=== PATIENT | female | born 1965 | race Caucasian/White ===

== ENCOUNTER → 2017-09-29 | Outpatient (CLI) | payer MEDICARE, BC ==
[~2017-09-29] MED LIST: HYDR-3720 PO; HYDR1TAB86 PO; LORA1TAB PO; LVT.05T PO; MELO-195 PO; PNT40TEC PO
--- NOTE | 2017-10-02 10:47 | Diagnostic Imaging Report ---
EXAMINATION: Bilateral screening mammogram 2D views with tomosynthesis. The current study was also evaluated with a Computer Aided Detection (CAD) system. INDICATION: Screening. PERSONAL HISTORY: No current complaints stated on the questionnaire. COMPARISON: 07/14/2016. FINDINGS: The breasts are composed of heterogeneously dense parenchyma which may decrease mammographic sensitivity. A circumscribed mass in the central aspect of the left breast measuring 2 cm is again noted, compatible with a cyst. A biopsy clip in the right breast is seen. Allowing for technique and positional differences, no suspicious change is seen. IMPRESSION: No significant change. ACR BI-RADS Category 2: Benign findings. Result letter will be mailed to the patient. Note: At least 10% of breast cancer is not imaged by mammography. Dictated by: Dictated on workstation # [id number]
== END ==
LOC: RAD 10:55
PROVIDERS: ATTEND Internal Medicine
DX: Z12.31 Encounter for screening mammogram for malignant neoplasm of breast (principal)
CPT/HCPCS: 77067

== ENCOUNTER → 2019-05-08 | Outpatient (CLI) | payer MEDICARE, BC ==
--- NOTE | 2019-05-08 15:36 | Diagnostic Imaging Report ---
PROCEDURE: MRI lumbar spine. TECHNIQUE: Multiplanar, multisequence MRI of the lumbar spine was performed without contrast. INDICATION: Low back pain. COMPARISON: There are no prior studies available for comparison. FINDINGS: The axial images do show that at the level of the superior endplate of T12 there is a cleft within the cord centrally. There are two separate cords which extend caudally to the level of the superior endplate of L3. 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 There is also a suggestion of tethering of the distal-most portion of the cord. There is no soft tissue mass associated with this finding, however. There is no abnormal signal arising from the cord itself. The thecal sac is quite generous. There is no evidence for spinal stenosis or nerve root encroachment at any level. The T2 sagittal images show the vertebral body heights and alignment to be within normal limits. The intervertebral spaces are well maintained, although there is desiccation of the disc at every level. There is no sign of a paraspinal mass. IMPRESSION: 1. 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 There may also be slight tethering of the cord. 2. There is no evidence for spinal stenosis or nerve root encroachment at any level. 3. There is no sign of an acute bony abnormality. Dictated by: Dictated on workstation # [id number]
== END ==
LOC: RAD 14:25
PROVIDERS: ATTEND Orthopaedic Surgery
DX: M47.26 Other spondylosis with radiculopathy, lumbar region (principal)
CPT/HCPCS: 72148

== ENCOUNTER 2021-04-26 09:16 | Emergency (ER) | payer MEDICARE, BC ==
[~2021-04-26] VITALS: Ht 160 cm; Wt 78.4 kg
[2021-04-26 09:37] VITALS: BP_SYST 136; BP_SYST 147; BP_DIAS 80; BP_DIAS 91
--- NOTE | 2021-04-26 09:43 | ED GI ---
General Chief Complaint: Abdominal/GI Problems Stated Complaint: N/V,DIAHRREA,SWEATS Nursing Triage Note: PT PRESENTS TO ED VIA POV FROM HOME WITH COMPLAINTS OF INTERMITTENT NAUSEA FOR 2 WEEKS. PT ALSO REPORTS INTERMITTENT DIAHRREA WITH COLD SWEATS STARTING THIS AM. PT REPORTS SHE WAS SEEN BY [facility] ON MONDAY AND HAD A NEGATIVE COVD TEST PERFORMED MONDAY. Source of Information: Patient Exam Limitations: No Limitations History of Present Illness Date Seen by Provider: Apr 26, 2021 Time Seen by Provider: 09:33 Initial Comments Patient presents ER by private conveyance from home with chief complaint since about April 17 she has been having some diarrhea, intermittent nausea and vomit ing. She went to Dr. Edward last Monday and was swabbed for Covid which was negative. She has not had any fevers cough shortness of air. She is not nauseated presently. She was given some Zofran which she said did not help her nausea at all. She did not take any this morning but when she stood up she got a bout of cold sweats nausea and cramping abdominal pain in her epigastric region. No blood in the stool. No other sick contacts. Allergies and Home Medications Allergies Coded Allergies: celecoxib (Verified Allergy, Mild, 07/07/12) gabapentin (Verified Allergy, Mild, 07/07/12) meloxicam (Verified Allergy, Mild, 07/07/12) naproxen (Verified Allergy, Mild, CHEST PAIN (2 WKS AFTER TX), 12/18/12) Home Medications Azithromycin 250 Mg Tablet, 250 MG PO UD TAKE 2 TABLETS ON DAY ONE THEN TAKE 1 TABLET DAILY FOR FOUR MORE DAYS Prescribed by: ABUNDIO NOLEN on 04/26/21 1305 Hydrocodone Bit/Acetaminophen 1 Ea Tab, 1-2 EA PO Q 4 - 6 HRS PRN, (Reported) Levothyroxine Sodium 50 Mcg Tablet, 50 MCG PO DAILY, (Reported) Lorazepam 1 Mg Tablet, 1 EACH PO HS, (Reported) Ondansetron 4 Mg Tab.rapdis, 4-8 MG PO Q6H PRN for NAUSEA/VOMITING Prescribed by: ABUNDIO NOLEN on 04/26/21 1305 Pantoprazole Sodium 40 Mg Tablet., 40 MG PO BID PRN, (Reported) FOR REFLUX Patient Home Medication List Home Medication List Reviewed: Yes Review of Systems Review of Systems Constitutional: No chills, No diaphoresis EENTM: No Blurred Vision, No Double Vision Respiratory: Denies Cough, Denies Shortness of Air Cardiovascular: Denies Chest Pain, Denies Lightheadedness Gastrointestinal: See HPI, Abdominal Pain; Denies Constipated; Diarrhea, Nausea, Poor Appetite; Denies Poor Fluid Intake; Vomiting Genitourinary: Denies Burning, Denies Discharge Musculoskeletal: No back pain, No joint pain All Other Systems Reviewed Negative Unless Noted: Yes Past Qgwdjmp-Jqplgi-Xlrqmq Hx Patient Social History Tobacco Use?: No Smokeless Tobacco Frequency: Never a User Use of E-Cig and/or Vaping dev: No Use of E-Cig and/or Vaping Avni: Never a User Alcohol Use?: No Pt feels they are or have been: No Immunizations Up To Date Tetanus Booster (TDap): Unknown PED Vaccines UTD: No First/Initial COVID19 Vaccinat: NONE Past Medical History Reproductive Disorders: Yes Female Reproductive Disorders: Denies TOUCH UP EDGER History: Tubal Ligation Gastroesophageal Reflux Arthritis, Chronic Back Pain Hypothyroidsim Loss of Vision: Denies Hearing Impairment: Denies Physical Exam Vital Signs Vital Signs - First Documented 04/26/21 09:31 Temp 36.1 Pulse 89 Resp 18 B/P (MAP) 175/92 (119) Pulse Ox 99 Capillary Refill : Less Than 3 Seconds Height/Weight/BMI Height: 5'2" Weight: 154lbs. oz. 69.550432vm; 30.00 BMI Method:Stated General Appearance: WD/WN, no apparent distress HEENT: PERRL/EOMI, pharynx normal Neck: full range of motion, normal inspection Respiratory: lungs clear, normal breath sounds, no respiratory distress, no accessory muscle use Cardiovascular: normal peripheral pulses, regular rate, rhythm Peripheral Pulses: 2+ Radial Pulses (R), 2+ Radial Pulses (L) Gastrointestinal: normal bowel sounds, soft, no organomegaly, tenderness (Mild tenderness in the epigastric region) Extremities: normal range of motion, normal inspection, normal capillary refill Neurologic/Psychiatric: alert, normal mood/affect, oriented x 3 Skin: normal color, warm/dry Progress/Results/Core Measures Results/Orders Lab Results Laboratory Tests Test 04/26/21 09:36 04/26/21 09:59 Range/Units White Blood Count 10.9 4.3-11.0 10^3/uL Red Blood Count 4.72 3.80-5.11 10^6/uL Hemoglobin 14.2 11.5-16.0 g/dL Hematocrit 43 35-52 % Mean Corpuscular Volume 91 80-99 fL Mean Corpuscular Hemoglobin 30 25-34 pg Mean Corpuscular Hemoglobin Concent 33 32-36 g/dL Red Cell Distribution Width 12.8 10.0-14.5 % Platelet Count 297 130-400 10^3/uL Mean Platelet Volume 10.2 9.0-12.2 fL Immature Granulocyte % (Auto) 1 % Neutrophils (%) (Auto) 83 H 42-75 % Lymphocytes (%) (Auto) 11 L 12-44 % Monocytes (%) (Auto) 5 0-12 % Eosinophils (%) (Auto) 1 0-10 % Basophils (%) (Auto) 0 0-10 % Neutrophils # (Auto) 9.0 H 1.8-7.8 10^3/uL Lymphocytes # (Auto) 1.2 1.0-4.0 10^3/uL Monocytes # (Auto) 0.5 0.0-1.0 10^3/uL Eosinophils # (Auto) 0.1 0.0-0.3 10^3/uL Basophils # (Auto) 0.0 0.0-0.1 10^3/uL Immature Granulocyte # (Auto) 0.1 0.0-0.1 10^3/uL Sodium Level 142 135-145 MMOL/L Potassium Level 3.9 3.6-5.0 MMOL/L Chloride Level 105 98-107 MMOL/L Carbon Dioxide Level 26 21-32 MMOL/L Anion Gap 11 5-14 MMOL/L Blood Urea Nitrogen 11 7-18 MG/DL Creatinine 0.95 0.60-1.30 MG/DL Estimat Glomerular Filtration Rate > 60 BUN/Creatinine Ratio 12 Glucose Level 86 70-105 MG/DL Calcium Level 9.5 8.5-10.1 MG/DL Corrected Calcium 9.1 8.5-10.1 MG/DL Total Bilirubin 1.0 0.1-1.0 MG/DL Aspartate Amino Transf (AST/SGOT) 18 5-34 U/L Alanine Aminotransferase (ALT/SGPT) 19 0-55 U/L Alkaline Phosphatase 88 40-136 U/L C-Reactive Protein High Sensitivity 0.39 0.00-0.50 MG/DL Total Protein 7.9 6.4-8.2 GM/DL Albumin 4.5 3.2-4.5 GM/DL Urine Color YELLOW Urine Clarity CLEAR Urine pH 6.0 5-9 Urine Specific [place] 1.010 L 1.016-1.022 Urine Protein NEGATIVE NEGATIVE Urine Glucose (UA) NEGATIVE NEGATIVE Urine Ketones NEGATIVE NEGATIVE Urine Nitrite NEGATIVE NEGATIVE Urine Bilirubin NEGATIVE NEGATIVE Urine Urobilinogen 0.2 < = 1.0 MG/DL Urine Leukocyte Esterase NEGATIVE NEGATIVE Urine RBC (Auto) NEGATIVE NEGATIVE Urine RBC NONE /HPF Urine WBC NONE /HPF Urine Squamous Epithelial Cells 2-5 /HPF Urine Renal Epithelial Cells 2-5 /HPF Urine Crystals NONE /LPF Urine Bacteria NEGATIVE /HPF Urine Casts NONE /LPF Urine Mucus NEGATIVE /LPF Urine Culture Indicated NO Micro Results Microbiology 04/26/21 Fecal Leukocyte Stain - Final, Complete My Orders Orders - ABUNDIO NOLEN Stool Culture (04/26/21 09:40) Fecal Wbc (04/26/21 09:40) Parasite Scrn Stool Giard Cryp (04/26/21 09:40) Cbc With Automated Diff (04/26/21 09:40) Comprehensive Metabolic Panel (04/26/21 09:40) Hs C Reactive Protein (04/26/21 09:40) Ua Culture If Indicated (04/26/21 09:40) Ed Iv/Invasive Line Start (04/26/21 09:40) Lactated Ringers (Lr 1000 Ml Iv Solution (04/26/21 09:45) Orthostatic Vital Signs (Adult (04/26/21 09:43) Ondansetron Injection (Zofran Injectio (04/26/21 11:30) Medications Given in ED Current Medications Medications Dose Ordered Sig/Betty Route Start Time Stop Time Status Last Admin Dose Admin Lactated Ringer's 1,000 ml @ 0 mls/hr Q0M ONCE IV 04/26/21 09:45 04/26/21 09:46 DC 04/26/21 09:55 0 MLS/HR Ondansetron HCl 4 mg ONCE ONCE IVP 04/26/21 11:30 04/26/21 11:31 DC 04/26/21 11:29 4 MG Vital Signs/I&O 04/26/21 04/26/21 09:31 09:37 Temp 36.1 Pulse 89 79 87 Resp 18 B/P (MAP) 175/92 (119) 147/80 (102) 136/91 (106) Pulse Ox 99 Blood Pressure Mean: 119 Progress Progress Note : Time: 09:45 Progress Note Well-appearing with intermittent nausea vomiting diarrhea. A viral syndrome seems most likely but given how long its been going on we have ordered some stool studies white count, Giardia and culture. She may have to complete this outpatient if she cannot produce a stool. We will give her a liter of fluids. Orthostatic vital signs. We will check some labs including a CRP. We discussed repeating Covid testing and the patient declined stating she had a large epi staxis with the last Covid test. She is not having any upper respiratory symptoms and seems to be exclusively gastroenteritis. While this falls in the realm of COVID-19 she did have a negative test. Departure Impression Primary Impression: Diarrhea Qualified Codes: R19.7 - Diarrhea, unspecified Disposition: HOME, SELF-CARE Condition: Stable Departure-Patient Inst. Decision time for Depature: 13:02 Referrals: DARINEL EDWARD MD (PCP/Family) Primary Care Physician Patient Instructions: Diarrhea in Adolescents and Adults Add. Discharge Instructions: Cultures will take a couple days to get results and we will call you if we need to change your antibiotic therapy. Azithromycin 2 tablets today followed by 1 tablet every day for the next 4 days afterwards. Follow-up with your doctor later this week for recheck. Return to the ER if you are having intractable nausea and vomiting or diarrhea. Loperamide 2 tablets followed by 1 tablet every 4 hours afterwards that you still have loose watery stools. Zofran 1 to 2 tablets every 6 hours as necessary for nausea and/or vomiting. Collect a stool sample and bring it back up to the lab within 30 minutes of collection to complete the Giardia and parasite testing. All discharge instructions reviewed with patient and/or family. Voiced understanding. Scripts Ondansetron (Ondansetron Odt) 4 Mg Tab.rapdis 4-8 MG PO Q6H PRN for NAUSEA/VOMITING, #15 TAB 0 Refills Prov: ABUNDIO NOLEN 04/26/21 Azithromycin (Azithromycin) 250 Mg Tablet 250 MG PO UD, #6 TAB 0 Refills TAKE 2 TABLETS ON DAY ONE THEN TAKE 1 TABLET DAILY FOR FOUR MORE DAYS Prov: ABUNDIO NOLEN 04/26/21 ABUNDIO NOLEN Apr 26, 2021 09:43
[2021-04-26] MEDS ORDERED: LACTATED RINGERS 1,000 ML IV ONE (09:45)
[2021-04-26 09:46] LABS: BASOPHILS % (AUTO) 0 % (0-10); EOSINOPHILS # (AUTO) 0.1 10^3/uL (0.0-0.3); EOSINOPHILS % (AUTO) 1 % (0-10); HEMATOCRIT 43 % (35-52); HEMOGLOBIN 14.2 g/dL (11.5-16.0); LYMPHOCYTES # (AUTO) 1.2 10^3/uL (1.0-4.0); LYMPHOCYTES % (AUTO) 11 % (12-44); MEAN CORPUSCULAR HEMOGLOBIN 30 pg (25-34); MEAN CORPUSCULAR HGB CONC 33 g/dL (32-36); MEAN CORPUSCULAR VOLUME 91 fL (80-99); MEAN PLATELET VOLUME 10.2 fL (9.0-12.2); MONOCYTES # (AUTO) 0.5 10^3/uL (0.0-1.0); MONOCYTES % (AUTO) 5 % (0-12); NEUTROPHILS % (AUTO) 83 % (42-75); PLATELET COUNT 297 10^3/uL (130-400); WHITE BLOOD COUNT 10.9 10^3/uL (4.3-11.0)
[2021-04-26 09:56] LABS: ALBUMIN 4.5 GM/DL (3.2-4.5); CHLORIDE 105 MMOL/L (98-107); POTASSIUM 3.9 MMOL/L (3.6-5.0); SODIUM 142 MMOL/L (135-145)
[2021-04-26 09:57] LABS: CALCIUM 9.5 MG/DL (8.5-10.1)
[2021-04-26 09:58] LABS: GLUCOSE 86 MG/DL (70-105); TOTAL PROTEIN 7.9 GM/DL (6.4-8.2)
[2021-04-26 09:59] LABS: CARBON DIOXIDE 26 MMOL/L (21-32)
[2021-04-26 10:02] LABS: ALKALINE PHOSPHATASE 88 U/L (40-136); CREATININE SERUM 0.95 MG/DL (0.60-1.30); GFR ESTIMATED > 60
[2021-04-26 10:03] LABS: BUN/CREATININE RATIO 12
[2021-04-26 10:05] LABS: ALANINE AMINOTRANSFERASE 19 U/L (0-55)
[2021-04-26 10:07] LABS: BILIRUBIN,URINE NEGATIVE (NEGATIVE); CLARITY,URINE CLEAR; COLOR,URINE YELLOW; GLUCOSE, URINE (UA) NEGATIVE (NEGATIVE); KETONES,URINE NEGATIVE (NEGATIVE); LEUKOCYTE ESTERASE ,URINE NEGATIVE (NEGATIVE); NITRITE,URINE NEGATIVE (NEGATIVE); PROTEIN,URINE NEGATIVE (NEGATIVE)
[2021-04-26 10:22] LABS: BACTERIA,URINE NEGATIVE /HPF
[2021-04-26] MEDS ORDERED: ONDANSETRON 4 MG/2 ML (SDV) Z0FRAN IVP ONE (11:30)
[2021-04-26] MEDS ORDERED: ONDA4TAB11 PO ×2 (13:05→13:13)
[2021-04-26] MEDS ORDERED: AZIT250T12 PO ×2 (13:05→13:13)
[2021-04-26 13:21] VITALS: BP 139/103
== END 2021-04-26 13:21 | disposition home or self-care (01) ==
LOC: EDUNIT# 09:16 → ER 09:19
DX: R19.7 Diarrhea, unspecified (principal); E03.9 Hypothyroidism, unspecified; G89.29 Other chronic pain; M54.9 Dorsalgia, unspecified; K21.9 Gastro-esophageal reflux disease without esophagitis; Z79.890 Hormone replacement therapy; Z20.822 Contact with and (suspected) exposure to COVID-19; Z79.899 Other long term (current) drug therapy; Z79.891 Long term (current) use of opiate analgesic
CPT/HCPCS: 36415; 80053; 81000; 85025; 86141; 87015; 87045; 87046; 87328; 87329; 87899; 89055

== ENCOUNTER 2022-03-29 05:30 | Outpatient (CLI) | payer MEDICARE, BC ==
[~2022-03-29] VITALS: Ht 158.5 cm; Wt 77.6 kg
[~2022-03-29 05:30] MED LIST changes: +AZIT250T12 PO; +ONDA4TAB11 PO
[2022-03-29 11:11] LABS: ALBUMIN 4.5 GM/DL (3.2-4.5); POTASSIUM 3.1 MMOL/L (3.6-5.0)
[2022-03-29 11:13] LABS: BASOPHILS # (AUTO) 0.1 10^3/uL (0.0-0.1); BASOPHILS % (AUTO) 1 % (0-10); CALCIUM 9.5 MG/DL (8.5-10.1); EOSINOPHILS # (AUTO) 0.2 10^3/uL (0.0-0.3); EOSINOPHILS % (AUTO) 3 % (0-10); HEMATOCRIT 43 % (35-52); HEMOGLOBIN 14.6 g/dL (11.5-16.0); LYMPHOCYTES # (AUTO) 2.2 10^3/uL (1.0-4.0); LYMPHOCYTES % (AUTO) 34 % (12-44); MEAN CORPUSCULAR HEMOGLOBIN 30 pg (25-34); MEAN CORPUSCULAR HGB CONC 34 g/dL (32-36); MEAN CORPUSCULAR VOLUME 88 fL (80-99); MEAN PLATELET VOLUME 10.6 fL (9.0-12.2); MONOCYTES # (AUTO) 0.5 10^3/uL (0.0-1.0); MONOCYTES % (AUTO) 7 % (0-12); NEUTROPHILS # (AUTO) 3.5 10^3/uL (1.8-7.8); NEUTROPHILS % (AUTO) 54 % (42-75); PLATELET COUNT 310 10^3/uL (130-400); WHITE BLOOD COUNT 6.4 10^3/uL (4.3-11.0)
[2022-03-29 11:14] LABS: PROTHROMBIN TIME PATIENT 13.1 SEC (12.2-14.7); TOTAL PROTEIN 7.9 GM/DL (6.4-8.2)
[2022-03-29 11:16] LABS: BILIRUBIN,TOTAL 1.3 MG/DL (0.1-1.0)
[2022-03-29 11:18] LABS: CREATININE SERUM 0.93 MG/DL (0.60-1.30)
[2022-03-29 11:22] VITALS: BP 121/82
[2022-03-29 11:25] LABS: BILIRUBIN,URINE NEGATIVE (NEGATIVE); CLARITY,URINE CLEAR; COLOR,URINE YELLOW; GLUCOSE, URINE (UA) NEGATIVE (NEGATIVE); KETONES,URINE NEGATIVE (NEGATIVE); LEUKOCYTE ESTERASE ,URINE TRACE (NEGATIVE); NITRITE,URINE NEGATIVE (NEGATIVE); PROTEIN,URINE NEGATIVE (NEGATIVE)
[2022-03-29] MEDS ORDERED: LEVO75TA PO (11:29)
[2022-03-29] MEDS ORDERED: PANT40TA2 PO (11:29)
[2022-03-29] MEDS ORDERED: HYDR-3820 PO (11:29)
[2022-03-29] MEDS ORDERED: SERT-414 PO (11:29)
[2022-03-29] MEDS ORDERED: LORA-405 SL (11:29)
[2022-03-29] MEDS ORDERED: LOSA1TAB20 PO (11:29)
[2022-03-29 11:44] LABS: ERYTHROCYTE SEDIMENTATION RATE 43 MM/HR (0-30)
[2022-03-29 11:45] LABS: BACTERIA,URINE NEGATIVE /HPF; SQUAMOUS EPITHELIAL CELL,UR RARE /HPF; WBC,URINE RARE /HPF
--- NOTE | 2022-03-29 12:55 | Diagnostic Imaging Report ---
INDICATION: Preop for knee replacement surgery. TIME OF EXAM: 11:25 AM Correlation is made with prior chest from 12/14/2012. FINDINGS: The heart size is normal. The pulmonary vascularity is unremarkable. The lungs are clear. No infiltrate, effusion or pneumothorax is detected. IMPRESSION: No acute cardiopulmonary process is detected. Dictated by: Dictated on workstation # [id number]
== END 2022-03-29 12:55 ==
LOC: PREOP 05:30
PROVIDERS: ATTEND Orthopaedic Surgery
DX: Z01.818 Encounter for other preprocedural examination (principal)
CPT/HCPCS: 36415; 71046; 80053; 81000; 82308; 85025; 85610; 85652; 86850; 86900; 86901; 87081; 93005

== ENCOUNTER 2022-04-06 05:56 | Inpatient (IN) | payer MEDICARE, BC ==
--- NOTE | 2022-03-29 07:58 | HISTORY AND PHYSICAL ---
DATE OF SERVICE: 04/06/2022 DATE OF SURGERY AND ADMISSION: 04/06/2022. This will be for inpatient admission on 04/06/2022 for right total knee arthroplasty. The patient will require regular inpatient admission due to gait abnormalities, need for physical therapy and need for pain management. HISTORY OF PRESENT ILLNESS: The patient is a 56-year-old female with longstanding progressive right knee pain. She has undergone treatment with rest, activity modifications, and anti-inflammatories without relief. She reports activity limitations because of the knee. She reports it has been progressing to the point where she has had interfered with her activities of daily living. Radiographs revealed severe tricompartmental osteoarthritis with complete loss of medial and patellofemoral joint spaces. Due to functional impairment and failure to improve with conservative measures, the patient has elected to proceed with surgical intervention. REVIEW OF SYSTEMS: No chest pain, no shortness of breath, no dysuria. PAST MEDICAL HISTORY: Depression, reflux, hypertension, hypothyroidism, osteoarthritis. PAST SURGICAL HISTORY: Appendectomy, left total knee arthroplasty and left breast biopsy. FAMILY HISTORY: Noncontributory. PRIMARY CARE PROVIDER: Dr. Ribera. MEDICATIONS: Synthroid, sertraline, pantoprazole, losartan, lorazepam, hydrocodone. ALLERGIES: CELEBREX, NAPROSYN, MOBIC. SOCIAL HISTORY: The patient denies alcohol and tobacco use. PHYSICAL EXAMINATION: GENERAL: The patient is a well-developed, well-nourished, in no acute distress. HEENT: Normocephalic, atraumatic. Pupils are equal, round, reactive to light. Oropharynx is clear. NECK: Supple, no lymphadenopathy. LUNGS: Clear to auscultation bilaterally. HEART: Regular rate and rhythm. ABDOMEN: Soft, nontender, nondistended. EXTREMITIES: The right knee demonstrates a mild effusion. There is no erythema or warmth. Range of motion 0/5/110. There is no varus valgus laxity. Negative anterior and posterior drawer. She has pain with patellar loading. She is tender along her medial femoral condyle. IMPRESSION: Severe right knee osteoarthritis. PLAN: Right total knee arthroplasty. The risks, benefits, options, ramifications and recovery have been discussed at length with the patient. She understands and wishes to proceed. Job ID: [id number] DocumentID: [id number] Dictated Date: 03/21/2022 16:18:04 Ditcher Operator Date: 03/21/2022 17:39:17 Dictated By: HOSSEIN MABRY MD
[~2022-04-06] VITALS: Ht 158 cm; Wt 77.6 kg
[2022-04-06] VITALS (12 sets, daily range): BP systolic 78–127; BP diastolic 47–78
[~2022-04-06 05:56] MED LIST changes: +HYDR-3820 PO; +LEVO75TA PO; +LORA-405 SL; +LOSA1TAB20 PO; +PANT40TA2 PO; +SERT-414 PO
[2022-04-06] MEDS ORDERED: CEFUROXIME INJECTION 1,500 MG in NS (IVPB) 50 ML IV ONE (06:15)
[2022-04-06] MEDS: LACTATED RINGERS 1,000 ML IV PRN ×2 (06:35→08:48)
[2022-04-06] MEDS ORDERED: MIDAZOLAM 2 MG/2 ML (VERSED) VIAL ONE (06:52)
[2022-04-06] MEDS ORDERED: ROPIVACAINE 5MG/ML 30ML VIAL ONE (06:53)
[2022-04-06] MEDS ORDERED: LIDOCAINE PF 2% 5 ML (XYLOCAINE) VIAL ONE (06:53)
[2022-04-06] MEDS ORDERED: proPOfol 200 MG/20 ML (DIPRIVAN) VIAL IV ONE (07:10)
[2022-04-06] MEDS ORDERED: fentaNYL INJ 100 MCG/2 ML AMP ONE (07:11)
[2022-04-06] MEDS ORDERED: ONDANSETRON 4 MG/2 ML (SDV) Z0FRAN ONE (07:11)
[2022-04-06] MEDS ORDERED: ONDANSETRON 4 MG/2 ML (SDV) Z0FRAN IVP PRN ×2 (07:15→09:15)
[2022-04-06] MEDS ORDERED: morphine PCA 100 MG/100 ML BAG IV PRN (07:15)
[2022-04-06] MEDS ORDERED: NALOXONE 0.4 MG/ML 1 ML (NARCAN) VIAL IV PRN (07:15)
[2022-04-06] MEDS ORDERED: oxyCODONE/APAP 5/325MG (PERCOCET 5) TABLET PO PRN (07:15)
[2022-04-06] MEDS ORDERED: diphenhydrAMINE 50 MG/ML INJ (BENADRYL) IVP PRN (07:15)
--- NOTE | 2022-04-06 07:32 | Progress Note-Pre Operative ---
Pre-Operative Progress Note H&P Reviewed The H&P was reviewed, patient examined and no changes noted. Date Seen by Provider: Apr 06, 2022 Time Seen by Provider: 07:20 Date H&P Reviewed: Apr 06, 2022 Time H&P Reviewed: 07:11 Pre-Operative Diagnosis: right knee primary osteoarthritis HOSSEIN MABRY MD Apr 06, 2022 07:32
--- NOTE | 2022-04-06 07:32 | Progress Note-Post Operative ---
Post-Operative Progess Note Surgeon (s)/Water Resources Program Director (s) Surgeon HOSSEIN MABRY MD Water Resources Program Director: Pepito Rangel Pre-Operative Diagnosis right knee primary osteoarthritis Post-Operative Diagnosis right knee primary osteoarthritis Procedure & Operative Findings Date of Procedure 04/06/22 Procedure Performed/Findings right total knee arthroplasty Anesthesia Type GETA Estimated Blood Loss Estimated blood loss (mL): minimal Specimens/Packing Specimens Removed none Packing: none HOSSIEN MABRY MD Apr 06, 2022 07:32
--- NOTE | 2022-04-06 07:35 | D/C HH Face to Face Order ---
D/C Face to Face Orders Reconcile Patient Problems Problems Reviewed?: Yes Instructions for Patient Via [facility] Room, Patient Instructions/FollowUp: three weeks Physician to follow Patient: three weeks Discharge Diet for Home: Regular Diet Patient Data-Allergies,Ht & Wt Patient Allergies: Coded Allergies: celecoxib (Verified Allergy, Mild, THROAT SWELLS UP, 03/29/22) gabapentin (Verified Allergy, Mild, 03/29/22) meloxicam (Verified Allergy, Mild, SWELLS UP THROAT, 03/29/22) naproxen (Verified Allergy, Mild, CHEST PAIN (2 WKS AFTER TX), 03/29/22) CHEST TIGHTNESS tramadol (Verified Allergy, Unknown, 04/06/22) Height (Feet): 5 Height (Inches): 2 Weight (Pounds): 154 Home Health Need/Face to Face Date of Face to Face: Apr 06, 2022 Clinical Findings: Muscle weakness, Pain with ambulation, Unsteady gait I have seen Pt [id number]: Yes Discharged To: Home Diagnosis/Conditions: right total knee arthroplasty Patient is Homebound due to: Muscle weakness, Pain w/ambulation Homebound Status Due to the above stated illness, injury or surgical procedure (medical condition or diagnosis) and associated clinical findings, the patient is homebound because of his/her inability to leave home except with aid of a supportive device and/or person AND leaving the home requires a considerable and taxing effort or is medically contraindicated. Pt req the following assistanc: [facility] Nursing Orders Home Health Services Order: Physical Therapy-Evaluate & Treat DC right knee gerardo and apply steri strips 04/20/22 Home Health Infusion Therapy Line Start Date: Apr 06, 2022 Therapy Orders Therapy Orders: Physical Therapy, PT to assess for OT Therapy Specific Orders: Eval assistive deivces, Teach enviro modifications/safety, Increase strength/endurance, Provider maintenance therapy, Restore ROM Certify Stmt I certify that this patient is under my care and that I, a nurse practitioner or a physician; a insurance assistant working with me, had a face to face encounter that - meets the physician face to face encounter requirements with this patient as dated. HOSSEIN MABRY MD Apr 06, 2022 07:35
[2022-04-06] MEDS ORDERED: INTRA-ARTICULAR IU ONE ×5 (08:00)
[2022-04-06] MEDS ORDERED: SEVOFLURANE (ULTANE) 15 ML INHAL SOLN ONE (08:59)
--- NOTE | 2022-04-06 09:11 | Anesthesia-General Post-Op ---
General Patient Condition Mental Status/LOC: Same as Preop Cardiovascular: Satisfactory Nausea/Vomiting: Absent Respiratory: Satisfactory Pain: Controlled Complications: Absent Post Op Complications Complications None Follow Up Care/Instructions Patient Instructions None needed. Anesthesia/Patient Condition Patient Condition Patient is doing well, no complaints, stable vital signs, no apparent adverse anesthesia problems. No complications reported per nursing. MORIAH REHMAN CRNA Apr 06, 2022 09:11
[2022-04-06] MEDS ORDERED: morphine INJ 10 MG/ML 1ML (SYR OR VIAL) IVP ONE (09:15)
[2022-04-06] MEDS ORDERED: PROMETHAZINE INJ 25 MG/ML (PHENERGAN) AMP IVP ONE (09:15)
[2022-04-06] MEDS ORDERED: MEPERIDINE (DEMEROL) INJ 50 MG/ML IVP ONE (09:15)
[2022-04-06] MEDS ORDERED: MEPERIDINE (DEMEROL) INJ 50 MG/ML ONE (09:21)
--- NOTE | 2022-04-06 09:53 | Diagnostic Imaging Report ---
INDICATION: Right knee pain. FINDINGS: Two views of the right knee show postop changes from joint arthroplasty. There is no evidence of loosening or acute fracture. There is some air in the joint space. IMPRESSION: Good alignment of the right knee following joint arthroplasty. Dictated by: Dictated on workstation # [id number]
[2022-04-06] MEDS: SENNA W/DOCUSATE (SENOKOT S) TABLET PO SCH ×2 (11:04→20:16)
[2022-04-06] MEDS ORDERED: morphine PCA 100 MG/100 ML BAG IV ONE (11:05)
[2022-04-06] MEDS: NS IV 1000 ML 1,000 ML IV SCH ×2 (11:17→23:42)
--- NOTE | 2022-04-06 12:58 | Progress Note ---
Standard Progress Note Progress Notes/Assess & Plan Date Seen by a Provider: Apr 06, 2022 Time Seen by a Provider: 12:57 Progress/Assessment & Plan post op check no complaints radiographs--HW well positioned without fracture RLE--2 plus DP pulse with brisk cap refill intact DF andPF of toes and ankle intact sensation throughout s/p RTKA mobilize as able HOSSEIN MABRY MD Apr 06, 2022 12:58
[2022-04-06] MEDS: CEFUROXIME INJECTION 750 MG in NS (IVPB) 50 ML IV SCH ×2 (14:31→23:44)
--- NOTE | 2022-04-06 16:03 | Physical Therapy Evaluation ---
PT Evaluation-General Medical Diagnosis Admission Date Apr 06, 2022 at 05:56 Medical Diagnosis: Right TKA Onset Date: Apr 06, 2022 Therapy Diagnosis Therapy Diagnosis: Gait deficit, strength deficit Height/Weight Height (Feet): 5 Height (Inches): 2 Weight (Pounds): 154 Precautions Precautions/Isolations: Fall Prevention, Standard Precautions Weight Bear Status Right Lower Extremity: Right Weight Bearing/Tolerated Left Lower Extremity: Left Full Weight Bearing Referral Physician: Dr. Jacome Reason for Referral: Evaluation/Treatment Medical History Reviewed History: Yes Social History Home: [facility] Current Living Status: Spouse Entry Into Home: Stairs With Railing PT Steps Into Home: 2 PT Steps Inside Home: 10 Prior Prior Level of Function SCALE: Activities may be completed with or without assistive devices. 5-Ncynsgefyv-aknzyrl completes the activity by him/herself with no assistance from a helper. 5-Set-up or Clean-up Assistance-helper sets up or cleans up; patient completes activity. [place] assists only prior to or following the activity. 4-Supervision or Touching Assistance-helper provides verbal cues and/or touching/steadying and/or contact guard assistance as patient completes activity. Assistance may be provided throughout the activity or intermittently. 3-Partial/Moderate Assistance-helper does LESS THAN HALF the effort. [place] lifts, holds or supports trunk or limbs, but provides less than half the effort. 2-Substantial/Maximal Assistance-helper does MORE THAN HALF the effort. [place] lifts or holds trunk or limbs and provides more than half the effort. 7-Bxfivzyln-vmrlgu does ALL the effort. Patient does none of the effort to complete the activity. Or, the assistance of 2 or more helpers is required for the patient to complete the activity. If activity was not attempted, code reason: 7-Patient Refused. 9-Not Applicable-not attempted and the patient did not perform the activity before the current illness, exacerbation or injury. 10-Not Attempted due to Environmental Limitations-(lack of equipment, weather restraints, etc.). 88-Not Attempted due to Medical Conditions or Safety Concerns. Bed Mobility: 6 Transfers (B,C,W/C): 6 Gait: 6 Stairs: 6 Indoor Mobility (Ambulation): Independent Stairs: Independent Prior Devices Use: None PT Evaluation-Current Subjective Patient lying supine in bed upon PT arrival, agreeable to treatment. Patient rates pain in right knee at 8/10. Objective Patient Orientation: Person, Place, Time, Situation Attachments: Polar Pack, IV ROM/Strength ROM Lower Extremities Right knee lacks ~10 degrees extension in supine and flexes to 95 degrees. Left LE WFLs all planes Strength Lower Extremities Left LE 4/5 all planes; Right knee extension and flexion 2/5. Sensory Vision: Functional Hearing: Functional Sensation Right Lower Extremit: Intact Sensation Left Lower Extremity: Intact Transfers Roll Left to Right (QC): 4 Sit to Lying (QC): 4 Lying to Sitting/Side of Bed(Q: 4 Sit to Stand (QC): 3 Chair/Ssa-tz-Lorth Xfer(QC): 3 Gait Does the Patient Walk?: Yes Mode of Locomotion: Walk Anticipated Mode of Locomotion: Walk Walk 10 feet (QC): 2 Distance: 3 Gait Assistive Device: FWW Balance Sitting Static: Good Sitting Dynamic: Good Standing Static: Poor Standing Dynamic: Poor Assessment/Needs Patient tolerated treatment fair. Performs all bed mobility with SBA and transfers with Min/mod A. Attempts to ambulate with FWW, however patient unable to bear weight through right LE. She ambulates 3 feet with FWW with max A and verbal cues for posture, use of FWW and safety. Patient in chair post treatment with all needs met, nursing notified, call light in reach and friend in the room. Rehab Potential: Good PT Ward Attendant Goals Ward Attendant Goals PT Prison Goals Time Frame: Apr 14, 2022 Roll Left & Right (QC): 6 Sit to Lying (QC): 6 Lying-Sitting on Side/Bed(QC): 6 Sit to Stand (QC): 5 Chair/Ypo-ho-Mhhcp Xfer(QC): 5 Toilet Transfer (QC): 5 Does the Patient Walk: Yes Walk 10 feet (QC): 4 Walk 50ft with 2 Turns (QC): 4 Walk 150 ft (QC): 4 1 Step (curb) (QC): 4 4 Steps (QC): 4 12 Steps (QC): 4 PT Plan Problem List Problem List: Activity Tolerance, Functional Strength, Safety, Balance, Gait, Transfer, Bed Mobility, ROM Treatment/Plan Treatment Plan: Continue Plan of Care Treatment Plan: Bed Mobility, Education, Functional Activity Tyree, Functional Strength, Group Therapy, Gait, Safety, Therapeutic Exercise, Transfers Treatment Duration: May 13, 2022 Frequency: 11 times per week Estimated Hrs Per Day: .25 hour per day Patient and/or Family Agrees t: Yes Safety Risks/Education Patient Education: Gait Training, Transfer Techniques Teaching Recipient: Patient Teaching Methods: Demonstration, Discussion Response to Teaching: Verbalize Understanding, Return Demonstration Time/GCodes Time In: 1423 Time Out: 1440 Total Billed Treatment Time: 17 Total Billed Treatment Visit, NORMA Berger PT Apr 06, 2022 16:02
[2022-04-06] MEDS: LORazepam 1 MG (ATIVAN) TAB PO PRN (18:48)
--- NOTE | 2022-04-06 19:04 | OPERATIVE REPORT ---
DATE OF SERVICE: 04/06/2022 PREOPERATIVE DIAGNOSIS: Right knee primary osteoarthritis. POSTOPERATIVE DIAGNOSIS: Right knee primary osteoarthritis. PROCEDURE PERFORMED: Right total knee arthroplasty. SURGEON: Frandy Mabry MD OPERATIONS EXECUTIVE: Pepito Rangel, who assisted throughout the procedure and closed the incision. ANESTHESIA: General endotracheal by Eduardo Bennett CRNA. TOURNIQUET TIME: Approximately 65 minutes at 300 mmHg. ESTIMATED BLOOD LOSS: Minimal. DRAINS: None. COMPLICATIONS: None. POSTOPERATIVE PLAN: Routine total knee arthroplasty protocol. The patient was transferred to the recovery room awake and stable condition. MATERIALS: Microport cemented size 2 femur, cemented size 2+ tibia with a 14 mm insert and cemented size 29 patellar button. STATEMENT OF MEDICAL NECESSITY: The patient is a 56-year-old female with longstanding progressive right knee pain. Radiographs revealed severe tricompartmental osteoarthritis. She has undergone treatment with arthroscopy, anti-inflammatories and injections without relief. Due to functional impairment and failure to improve with conservative measures, the patient elected to proceed with surgical intervention. DESCRIPTION OF PROCEDURE: After risks and benefits of the procedure were discussed and questions were answered, an informed consent was signed and placed on the chart. The operative site was confirmed in the preoperative holding area initialed by the surgeon. The patient was then transferred to the operating room. After adequate levels of general endotracheal anesthetic were obtained, a timeout was called, confirming the operative site. The right lower extremity was prepped and draped in the usual sterile fashion with the leg elevated and the knee flexed. Tourniquet was inflated to 300 mmHg. Standard anterior approach was utilized. Hemostasis was obtained with cautery. A medial parapatellar arthrotomy was performed leaving 1 cm cuff for later reattachment. A portion of the fat pad was resected. The ACL was resected and a subperiosteal release was performed on the proximal medial tibia being careful to stay on the bony surface. Intramedullary guide was passed into the femur and the distal cutting block was placed. The distal cut was made and the femur sized to a size 2 with the two cutting block was placed parallel to the epicondylar axis. Cuts were made from posterior to anterior. A subperiosteal release was then carefully performed on the posterior distal femur, being careful to stay on the bony surface. The trial was placed and the trochlear cut was made. The intramedullary guide was then passed into the tibia. The drop agustín transected the intermalleolar axis and the cut was made. The 2+ baseplate was placed, which provided excellent coverage. This was pinned into position. The drop agustín transected the intermalleolar axis and this was prepared with the drill and keel punch. The trials were inserted. The patella was prepared by resecting 10 mm off the undersurface using the freehand technique. The peg guide was placed and peg holes were drilled. The 29 trial was placed. The knee was taken through range of motion with a 14 mm insert, 120 degrees of flexion with gravity was easily obtained full extension was obtained. There was no anterior/posterior or medial/lateral laxity in flexion or extension and the patella tracked well. The trials were removed. The joint was irrigated with pulse lavage. The periarticular block was placed in the posterior capsule, medial and lateral retinaculum and extensor mechanism, subcutaneous tissues. The bone ends were further irrigated and dried. The tibial baseplate was cemented into position. Excessive cement was removed, the superior surface was irrigated and dried and the polyethylene insert was placed. The distal femur was irrigated and dried and the femoral prosthesis was cemented into position. Excessive cement was removed. The knee was brought out into full extension until cement had cured. The undersurface of the patella was irrigated and dried. The patellar button was cemented into position. Excessive cement was removed. Once the cement had cured, the knee was taken through range of motion. Full extension was easily obtained, 120 degrees of flexion with gravity was easily obtained. There was no significant anterior/posterior or medial/lateral laxity in flexion or extension. The patella tracked well. The joint was further irrigated with pulse lavage. The arthrotomy was closed with #2 Tevdek in lwpoog-bj-dqzcf interrupted fashion. The knee was flexed. The repair was stable and the patella tracked well and subcutaneous tissues were irrigated using a total of 6 liters throughout the procedure. A 0 Vicryl was used for deep subcutaneous tissue, 2-0 Vicryl for the superficial subcutaneous tissue, gerardo were used on the skin. A soft dressing was applied. The tourniquet was deflated. The patient was transferred to the recovery room awake and in stable condition. Job ID: [id number] DocumentID: [id number] Dictated Date: 04/06/2022 09:12:25 Hot Bread Baker Date: 04/06/2022 19:04:40 Dictated By: FRANDY MABRY MD
--- NOTE | 2022-04-06 19:45 | Consultation - Hospitalist ---
HPI History of Present Illness: HPI/Chief Complaint Dana Hamlin is a 56 year old female with PMH HTN, hypothyroidism, GERD, depression, osteoarthritis, who presented for right total knee arthroplasty. She was seen post-operatively. She has not been out of bed yet. She needs to use the bathroom. She is not having much pain. She denies fevers and chills. She denies chest pain and shortness of breath. She denies nausea and vomiting. She has been in her usual state of health. Source: patient Exam Limitations: no limitations Date Seen 04/06/22 Attending Physician Collin Ribera MD PCP Admitting Physician: Frandy Jacome MD Attending Physician: Frandy Jacome MD Referring Physician Date of Admission Apr 06, 2022 at 05:56 Home Medications & Allergies Home Medications Reviewed patient Home Medication Reconciliation performed by pharmacy medication reconciliations orthotic technician and/or nursing. Patients Allergies have been reviewed. Allergies Allergies Coded Allergies celecoxib (Verified Allergy, Mild, THROAT SWELLS UP, 03/29/22) gabapentin (Verified Allergy, Mild, 03/29/22) meloxicam (Verified Allergy, Mild, SWELLS UP THROAT, 03/29/22) naproxen (Verified Allergy, Mild, CHEST PAIN (2 WKS AFTER TX), 03/29/22) CHEST TIGHTNESS tramadol (Verified Allergy, Unknown, 04/06/22) Past Hsgpfkm-Mpyzmm-Pborzb Hx Patient Social History Tobacco Use?: No Smoking Status: Never a Smoker Substance use?: No Alcohol Use?: No Pt feels they are or have been: No Immunizations Up To Date First/Initial COVID19 Vaccinat: 05/20/2021 Second COVID19 Vaccination [place]: 06/17/2021 Tetanus Booster (TDap): Unknown Hepatitis A: No Hepatitis B: No PED Vaccines UTD: No Seasonal Allergies Seasonal Allergies: Yes Current Status status: No status: No Advance Directives: No Advance Directive Location: Home Communicates: Verbally Primary Language: Trinidadian Preferred Spoken Language: Trinidadian Is interpretation needed?: No Implanted or Applied Medical D: None Past Medical History Surgeries: Appendectomy Currently Using CPAP: No Currently Using BIPAP: No 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 Gastroesophageal Reflux Arthritis, Chronic Back Pain Hypothyroidsim Loss of Vision: Denies Hearing Impairment: Denies Anxiety, Depression Blood Disorders: Yes (ANEMIC HX) Family Medical History No Pertinent Family Hx Review of Systems Constitutional: no symptoms reported EENTM: no symptoms reported Respiratory: no symptoms reported Cardiovascular: no symptoms reported Gastrointestinal: no symptoms reported Genitourinary: no symptoms reported Musculoskeletal: no symptoms reported Skin: no symptoms reported Psychiatric/Neurological: No Symptoms Reported Physical Exam Physical Exam Vital Signs Vital Signs - First Documented 04/06/22 06:35 Temp 36.5 Pulse 73 Resp 18 B/P (MAP) 110/68 (82) Pulse Ox 95 O2 Delivery Room Air Capillary Refill : Less Than 3 Seconds Height, Weight, BMI Height: 5'2" Weight: 154lbs. oz. [id number]; 31.08 BMI Method:Stated General Appearance: No Apparent Distress, Obese HEENT: PERRL/EOMI, Pharynx Normal Neck: Normal Inspection, Supple Respiratory: Lungs Clear, Normal Breath Sounds, No Respiratory Distress Cardiovascular: Regular Rate, Rhythm, No Edema, No Murmur Gastrointestinal: Normal Bowel Sounds, Non Tender, Soft Extremity: Normal Inspection, Non Tender, No Pedal Edema Neurologic/Psychiatric: Alert, Oriented x3, No Motor/Sensory Deficits, Normal Mood/Affect Skin: Normal Color, Warm/Dry Results Results/Procedures Labs Patient resulted labs reviewed. Imaging: Reviewed Imaging Report Assessment/Plan Assessment and Plan Assess & Plan/Chief Complaint s/p right total knee arthroplasty Primary osteoarthritis of the right knee [place] primary PT/OT Pain regimen Bowel regimen Incentive spirometry Lovenox HTN Hold home meds, low-normal blood pressures Hypothyroidism GERD Depression Anxiety Continue home meds DVT prophylaxis: Lovenox Diagnosis/Problems Diagnosis/Problems (1) S/P total knee arthroplasty Status: Acute Qualifiers: Laterality: right Qualified Codes: Z96.651 - Presence of right artificial knee joint (2) Osteoarthritis of right knee Status: Chronic (3) HTN (hypertension) Status: Chronic Qualifiers: Hypertension type: primary hypertension Qualified Codes: I10 - Essential (primary) hypertension (4) Hypothyroidism Status: Chronic (5) GERD (gastroesophageal reflux disease) Status: Chronic (6) Depression with anxiety Status: Chronic (7) Obesity Status: Chronic LEMUEL MALDONADO MD Apr 06, 2022 19:45
[2022-04-06] MEDS: SERTRALINE 100 MG (ZOLOFT) TAB PO SCH (20:17)
[2022-04-07] VITALS (7 sets, daily range): BP systolic 103–113; BP diastolic 52–79
[2022-04-07] MEDS: LEVOTHYROXINE 75 MCG (LEVOTHROID) TABLET PO SCH (05:42)
[2022-04-07 05:56] LABS: HEMOGLOBIN 9.3 g/dL (11.5-16.0)
--- NOTE | 2022-04-07 07:45 | Progress Note ---
Standard Progress Note Progress Notes/Assess & Plan Date Seen by a Provider: Apr 07, 2022 Time Seen by a Provider: 07:43 Progress/Assessment & Plan post op check no complaints radiographs--HW well positioned without fracture RLE--2 plus DP pulse with brisk cap refill intact DF andPF of toes and ankle intact sensation throughout s/p RTKA mobilize as able Final Diagnosis c/o headache Vital Signs Date Time Temp Pulse Resp B/P (MAP) Pulse Ox O2 Delivery O2 Flow Rate FiO2 04/07/22 07:00 18 04/07/22 03:30 37.8 90 18 112/68 (83) 93 Room Air 04/07/22 00:13 37.2 82 18 113/79 (90) 96 Room Air 04/06/22 20:00 96 Room Air 04/06/22 20:00 18 04/06/22 19:55 37.3 74 17 115/59 (77) 95 Room Air 04/06/22 18:00 16 04/06/22 15:28 36.4 74 17 102/59 (73) 91 Room Air 04/06/22 12:00 36.0 80 17 125/67 (86) 100 Room Air 04/06/22 10:53 Room Air 04/06/22 10:05 36.5 84 17 127/64 (85) Room Air 04/06/22 10:05 96 Room Air 04/06/22 09:55 36.6 12 115/68 (84) 96 Room Air 04/06/22 09:55 Room Air 04/06/22 09:50 11 112/75 (87) 96 Room Air 04/06/22 09:45 OxyMask 2 04/06/22 09:40 12 121/65 (83) 99 OxyMask 8 04/06/22 09:35 OxyMask 8 04/06/22 09:30 12 119/68 (85) 100 OxyMask 8 04/06/22 09:20 12 108/75 (86) 98 OxyMask 8 04/06/22 09:20 OxyMask 8 04/06/22 09:16 117/78 (91) OxyMask 8 04/06/22 09:10 17 78/47 (57) 98 OxyMask 8 04/06/22 09:06 OxyMask 8 04/06/22 09:06 36.3 16 97 OxyMask 8 I & O 04/07/22 07:00 Intake Total 2360 ml Output Total 700 ml Balance 1660 ml Laboratory Tests Test 04/07/22 05:42 Range/Units Hemoglobin 9.3 L 11.5-16.0 g/dL Hematocrit 29 L 35-52 % RLE--dressing intact. No calf tenderness. Neg Melony's s/p RTKA PT/OT HOSSEIN MABRY MD Apr 07, 2022 07:45
[2022-04-07] MEDS: SENNA W/DOCUSATE (SENOKOT S) TABLET PO SCH ×2 (08:05→20:10)
[2022-04-07] MEDS: ASPIRIN E.C. 81 MG (ECOTRIN) TAB PO SCH (08:05)
[2022-04-07] MEDS: ENOXAPARIN INJECTION 30 MG/0.3 ML SYR SC SCH ×2 (08:05→20:09)
[2022-04-07] MEDS: PANTOPRAZOLE 40 MG (PROTONIX) TAB PO SCH (08:05)
[2022-04-07] MEDS: NS IV 1000 ML 1,000 ML IV SCH ×2 (08:06→12:45)
--- NOTE | 2022-04-07 10:32 | Physical Therapy Daily Note ---
PT Daily Note-Current Subjective Patient agrees to PT. C/o not being able to move her right foot from the block. Pain Numeric Pain Scale: 8 Location: Right Location Body Site: Knee Pain Description: Acute Mental Status Patient Orientation: Normal For Age Attachments: IV BOTTOM CAGER Transfers SCALE: Activities may be completed with or without assistive devices. 8-Pvirksamze-cohfaho completes the activity by him/herself with no assistance from a helper. 5-Set-up or Clean-up Assistance-helper sets up or cleans up; patient completes activity. [place] assists only prior to or following the activity. 4-Supervision or Touching Assistance-helper provides verbal cues and/or touching/steadying and/or contact guard assistance as patient completes activity. Assistance may be provided throughout the activity or intermittently. 3-Partial/Moderate Assistance-helper does LESS THAN HALF the effort. [place] lifts, holds or supports trunk or limbs, but provides less than half the effort. 2-Substantial/Maximal Assistance-helper does MORE THAN HALF the effort. [place] lifts or holds trunk or limbs and provides more than half the effort. 9-Fifbgqhwn-hwxkdv does ALL the effort. Patient does none of the effort to complete the activity. Or, the assistance of 2 or more helpers is required for the patient to complete the activity. If activity was not attempted, code reason: 7-Patient Refused. 9-Not Applicable-not attempted and the patient did not perform the activity before the current illness, exacerbation or injury. 10-Not Attempted due to Environmental Limitations-(lack of equipment, weather restraints, etc.). 88-Not Attempted due to Medical Conditions or Safety Concerns. Lying to Sitting/Side of Bed(Q: 4 Sit to Stand (QC): 3 Chair/Vmk-bv-Yluzs Xfer(QC): 2 Patient had low BP episode (107?51) during session requiring max assist to attain seated position in recliner. Weight Bearing Right Lower Extremity: Right Weight Bearing/Tolerated Left Lower Extremity: Left Full Weight Bearing Gait Training Distance: 15' Walk 10 feet (QC): 3 Gait Assistive Device: FWW unable to extend right LE (~15 degrees)/no right dorsiflexion Exercises Supine Ex: Ankle pumps, Quad Set, Heel Slides, Straight leg raise Supine Reps: 15 (all exercises AAROM patient lacks 15 degrees knee extension and displays minimal quad contraction) Seated Therapy Exercises: Ankle pumps, Long arc quads Seated Reps: 15 (AAROM) Assessment Patient had low BP episode during gait training requiring max assist to attain sitting in recliner. Patient very diaphoretic. Nursing notified. Increase activity as tolerated by patient. PT Coffee Supervisor Goals Skilled Nursing Goals PT Skilled Nursing Goals Time Frame: Apr 14, 2022 Roll Left & Right (QC): 6 Sit to Lying (QC): 6 Lying-Sitting on Side/Bed(QC): 6 Sit to Stand (QC): 5 Chair/Wwq-qf-Dqrxv Xfer(QC): 5 Toilet Transfer (QC): 5 Does the Patient Walk: Yes Walk 10 feet (QC): 4 Walk 50ft with 2 Turns (QC): 4 Walk 150 ft (QC): 4 1 Step (curb) (QC): 4 4 Steps (QC): 4 12 Steps (QC): 4 PT Plan Treatment/Plan Treatment Plan: Continue Plan of Care Treatment Plan: Bed Mobility, Education, Functional Activity Tyree, Functional Strength, Group Therapy, Gait, Safety, Therapeutic Exercise, Transfers Treatment Duration: May 13, 2022 Frequency: 11 times per week Estimated Hrs Per Day: .25 hour per day Patient and/or Family Agrees t: Yes Time/GCodes Time In: 850 Time Out: 913 Total Billed Treatment Time: 23 Total Billed Treatment 1 visit EX 15 min GT 8 min JULIUS BE PT Apr 07, 2022 10:32
--- NOTE | 2022-04-07 11:14 | Occupational Therapy Eval ---
OT Evaluation-General/PLF Medical Diagnosis Admission Date Apr 06, 2022 at 05:56 Medical Diagnosis: Right TKA Onset Date: Apr 06, 2022 Therapy Diagnosis Therapy Diagnosis: reduced adl status Height/Weight Height (Feet): 5 Height (Inches): 2 Weight (Pounds): 154 Precautions Precautions/Isolations: Fall Prevention, Standard Precautions Weight Bear Status Weight Bearing Restriction: Weight Bearing/Tolerated Location Restriction: R LE Referral Physician: Dr. Jacome Referral Reason: Evaluation/Treatment Medical History Pertinent Medical History: GERD, HTN Current History s/p R TKA, post op day 1 Per patient, she lives with spouse in a multilevel home. All needs can be met on main level. Pt reports being indep with adls and iadls prior to admission. She was using a cane at baseline. Reviewed History: Yes Social History Home: Multilevel Current Living Status: Spouse Entry Into Home: Stairs With Railing Steps Into Home: 2 Steps Inside Home: 10 ADL-Prior Level of Function SCALE: Activities may be completed with or without assistive devices. 2-Tmlfziehoz-saubxax completes the activity by him/herself with no assistance from a helper. 5-Set-up or Clean-up Assistance-helper sets up or cleans up; patient completes activity. Glenvil assists only prior to or following the activity. 4-Supervision or Touching Assistance-helper provides verbal cues and/or touching/steadying and/or contact guard assistance as patient completes activity. Assistance may be provided throughout the activity or intermittently. 3-Partial/Moderate Assistance-helper does LESS THAN HALF the effort. Glenvil lifts, holds or supports trunk or limbs, but provides less than half the effort. 2-Substantial/Maximal Assistance-helper does MORE THAN HALF the effort. Glenvil lifts or holds trunk or limbs and provides more than half the effort. 2-Kmmegxgsy-kqbsgv does ALL the effort. Patient does none of the effort to complete the activity. Or, the assistance of 2 or more helpers is required for the patient to complete the activity. If activity was not attempted, code reason: 7-Patient Refused. 9-Not Applicable-not attempted and the patient did not perform the activity before the current illness, exacerbation or injury. 10-Not Attempted due to Environmental Limitations-(lack of equipment, weather restraints, etc.). 88-Not Attempted due to Medical Conditions or Safety Concerns. Self Care: Independent Functional Cognition: Independent DME/Equipment: Bath Chair, Tub/Shower Drive Self: Yes OT Current Status Subjective Pt reports R knee pain as 6/10. RN aware. Appearance Pt returned to sitting in recliner, all needs within reach, spouse in the room. Mental Status/Objective Patient Orientation: Person, Place, Situation Attachments: IV Current Hand Dominance: Right Upper Extremity ROM R shoulder impaired (baseline), ~70 degrees AROM, ~100 degrees PROM (to pain tolerance) LUE WNL Upper Extremity Strength LUE: 4/5 throughout R shoulder not tested due to c/o pain Bilateral clerk general: fair ADL-Treatment Eating (QC): 6 On/Off Footwear (QC): 3 Toileting Hygiene (QC): 3 Pt sitting in recliner at OT arrival. Able to don/doff L sock without difficulty. Dependent to don R secondary to pain. Anticipate improved performance once pain subsides and knee ROM improves. Sit<>stand: SBA. Once standing, CGA-min a required. Pt offloading R foot, placing only toes onto the floor. Pt apprehensive to bear weight onto RLE. Heavy reliance with BUE support on walker. Min a needed for balance when removing unilateral UE support. Pt fatigues quickly and unable to sustain single UE support for very long before returning both hands to walker. She reports SOB after standing for ~30 seconds. Poor eccentric control when lowering to chair, requiring min a. At this time, pt will need assistance with standing functional tasks such as clothing management. Education provided on care of incision during bathing tasks. OT also demonstrated simulated seated tub transfer with shower seat. Education OT Patient Education: Correct positioning, Modified ADL techniques, Purpose of tx/functional activities, Reviewed precautions, Safety issues, Transfer techniques Teaching Recipient: Patient, Family Teaching Methods: Demonstration, Discussion Response to Teaching: Verbalize Understanding, Reinforcement Needed OT Mcc Goals Seat Cover Installer Goals Time Frame: Apr 20, 2022 Oral Hygiene (QC): 5 Toileting Hygiene (QC): 6 Shower/Bathe Self (QC): 4 Upper Body Dressing (QC): 5 Lower Body Dressing (QC): 4 On/Off Footwear (QC): 4 1=Demonstrate adherence to instructed precautions during ADL tasks. 2=Patient will verbalize/demonstrate understanding of assistive devices/modifications for ADL. 3=Patient will improve strength/tolerance for activity to enable patient to perform ADL's. OT Education/Plan Problem List/Assessment Assessment: Decreased Activ Tolerance, Decreased UE Strength, Impaired Funct Balance, Impaired I ADL's, Impaired Self-Care Skills, Restricted Funct UE ROM Discharge Recommendations Plan/Recommendations: Continue POC Treatment Plan/Plan of Care Treatment,Training & Education: Yes Patient would benefit from OT for education, treatment and training to promote independence in ADL's, mobility, safety and/or upper extremity function for ADL's. Plan of Care: ADL Retraining, Functional Mobility, Group Exercise/Act as Ind, UE Funct Exercise/Act Treatment Duration: Apr 20, 2022 Frequency: 5 times per week Estimated Hrs Per Day: .25 hour per day Agreement: Yes Time/GCodes Start Time: 10:45 Stop Time: 11:01 Total Time Billed (hr/min): 16 Billed Treatment Time 1 visit Marcelle Lewis OT Apr 07, 2022 11:14
--- NOTE | 2022-04-07 14:45 | Physical Therapy Daily Note ---
PT Daily Note-Current Subjective Pt ambulating back to bed w/ nurse as PT enters room and agrees to PT. present. Pain Numeric Pain Scale: 9 Location: Right Location Body Site: Knee Mental Status Patient Orientation: Person, Place, Time, Situation Transfers SCALE: Activities may be completed with or without assistive devices. 2-Tntfbcocun-lqlgmlw completes the activity by him/herself with no assistance from a helper. 5-Set-up or Clean-up Assistance-helper sets up or cleans up; patient completes activity. Fries assists only prior to or following the activity. 4-Supervision or Touching Assistance-helper provides verbal cues and/or touching/steadying and/or contact guard assistance as patient completes activity. Assistance may be provided throughout the activity or intermittently. 3-Partial/Moderate Assistance-helper does LESS THAN HALF the effort. Fries lifts, holds or supports trunk or limbs, but provides less than half the effort. 2-Substantial/Maximal Assistance-helper does MORE THAN HALF the effort. Fries lifts or holds trunk or limbs and provides more than half the effort. 7-Msxtdlgrr-kkjfkd does ALL the effort. Patient does none of the effort to complete the activity. Or, the assistance of 2 or more helpers is required for the patient to complete the activity. If activity was not attempted, code reason: 7-Patient Refused. 9-Not Applicable-not attempted and the patient did not perform the activity before the current illness, exacerbation or injury. 10-Not Attempted due to Environmental Limitations-(lack of equipment, weather restraints, etc.). 88-Not Attempted due to Medical Conditions or Safety Concerns. Weight Bearing Right Lower Extremity: Right Weight Bearing/Tolerated Left Lower Extremity: Left Full Weight Bearing Gait Training Does the Patient Walk?: Yes Distance: 10' Walk 10 feet (QC): 3 Gait Assistive Device: FWW antalgic Exercises Supine Ex: Ankle pumps, Quad Set, Heel Slides, Straight leg raise Supine Reps: 15 Treatments Pt amb back to bed and then TFs to bed and performs supine exs. All needs met and call light nearby as PT departs. Assessment Current Status: Fair Progress Pt AROM dorsiflexion remains very poor. Propped pt R heel on prop for approx. 3 min to encourage extension. Pt ROM remains very limited. PT Halfway Goals Medical Aides Teacher Goals PT Medical Aides Teacher Goals Time Frame: Apr 14, 2022 Roll Left & Right (QC): 6 Sit to Lying (QC): 6 Lying-Sitting on Side/Bed(QC): 6 Sit to Stand (QC): 5 Chair/Sge-tw-Opixv Xfer(QC): 5 Toilet Transfer (QC): 5 Does the Patient Walk: Yes Walk 10 feet (QC): 4 Walk 50ft with 2 Turns (QC): 4 Walk 150 ft (QC): 4 1 Step (curb) (QC): 4 4 Steps (QC): 4 12 Steps (QC): 4 PT Plan Problem List Problem List: Activity Tolerance, Functional Strength, Safety, Gait Treatment/Plan Treatment Plan: Continue Plan of Care Treatment Plan: Bed Mobility, Education, Functional Activity Tyree, Functional Strength, Group Therapy, Gait, Safety, Therapeutic Exercise, Transfers Treatment Duration: May 13, 2022 Frequency: 11 times per week Estimated Hrs Per Day: .25 hour per day Patient and/or Family Agrees t: Yes Safety Risks/Education Patient Education: Gait Training, Correct Positioning Teaching Recipient: Patient Teaching Methods: Discussion Response to Teaching: Return Demonstration Time/GCodes Time In: 1404 Time Out: 1427 Total Billed Treatment Time: 23 Total Billed Treatment 1, Ex 15 min, Ex 8min EL BARR BOILER RIVETER Apr 07, 2022 14:45
[2022-04-07] MEDS: SERTRALINE 100 MG (ZOLOFT) TAB PO SCH (20:10)
[2022-04-07] MEDS: LORazepam 1 MG (ATIVAN) TAB PO PRN (20:15)
[2022-04-08 03:33] VITALS: BP 104/69
--- NOTE | 2022-04-08 03:58 | DISCHARGE SUMMARY ---
DATE OF SERVICE: DATE OF ADMISSION: 04/06/2022. DATE OF DISCHARGE: 04/08/2022. DIAGNOSES: 1. Right knee primary osteoarthritis. 2. Depression. 3. Reflux. 4. Hypertension. 5. Hypothyroidism. PROCEDURE: Right total knee arthroplasty. SUMMARY: The patient is a 56-year-old female, who underwent a right total knee arthroplasty on the day of admission. Postoperatively, she did well. At the time of discharge, her wound was clean and dry. She had no calf tenderness and negative Homans sign. She was tolerating her diet well and tolerating pain with oral pain medication. CONDITION AT DISCHARGE: Good. DISCHARGE DIET: Regular. ACTIVITIES: Weightbearing as tolerated with a walker. Home physical therapy will be arranged. DISCHARGE MEDICATIONS: Home medications one aspirin per day for 30 days and Percocet as needed for pain. Job ID: [id number] DocumentID: [id number] Dictated Date: 04/07/2022 07:44:21 Sales Marketing Manager Date: 04/08/2022 03:57:35 Dictated By: HOSSEIN MABRY MD
[2022-04-08 05:52] LABS: HEMOGLOBIN 8.9 g/dL (11.5-16.0)
[2022-04-08] MEDS: LEVOTHYROXINE 75 MCG (LEVOTHROID) TABLET PO SCH (06:08)
--- NOTE | 2022-04-08 07:18 | Progress Note ---
Standard Progress Note Progress Notes/Assess & Plan Date Seen by a Provider: Apr 08, 2022 Time Seen by a Provider: 07:17 Progress/Assessment & Plan post op check no complaints radiographs--HW well positioned without fracture RLE--2 plus DP pulse with brisk cap refill intact DF andPF of toes and ankle intact sensation throughout s/p RTKA mobilize as able Final Diagnosis feeling better today Vital Signs Date Time Temp Pulse Resp B/P (MAP) Pulse Ox O2 Delivery O2 Flow Rate FiO2 04/08/22 03:33 37.1 100 18 104/69 (81) 93 Room Air 04/07/22 23:28 37.7 100 18 108/73 (85) 93 Room Air 04/07/22 21:00 18 04/07/22 20:00 Room Air 04/07/22 19:15 37.2 91 16 103/67 (79) 92 Room Air 04/07/22 16:16 36.8 97 16 104/67 (79) 92 Room Air 04/07/22 12:19 37.3 87 19 104/52 (69) 94 Room Air 04/07/22 08:49 37.8 90 18 106/58 (74) 93 Room Air 04/07/22 08:00 Room Air I & O 04/08/22 07:00 Intake Total 3630 ml Output Total 1850 ml Balance 1780 ml Laboratory Tests Test 04/08/22 05:36 Range/Units Hemoglobin 8.9 L 11.5-16.0 g/dL Hematocrit 27 L 35-52 % RLE--incision clean and dry. No claf tenderness neg Melony's weak with DF at ankle but sensation intact throughout s/p RTKA DC after PT if ambulation improved HOSSEIN MABRY MD Apr 08, 2022 07:18
[2022-04-08] MEDS ORDERED: morphine INJ 4 MG/ML 1 ML (VIAL/SYRINGE) IVP PRN (07:30)
[2022-04-08] MEDS: SENNA W/DOCUSATE (SENOKOT S) TABLET PO SCH (07:38)
[2022-04-08] MEDS: PANTOPRAZOLE 40 MG (PROTONIX) TAB PO SCH (07:38)
[2022-04-08] MEDS: ENOXAPARIN INJECTION 30 MG/0.3 ML SYR SC SCH (07:38)
[2022-04-08] MEDS: ASPIRIN E.C. 81 MG (ECOTRIN) TAB PO SCH (07:38)
[2022-04-08 07:51] VITALS: BP 119/59
--- NOTE | 2022-04-08 08:43 | Occ Therapy Progress Note ---
Therapy Progress Note OT tx attempted, but pt pleasantly declined services at this time. Pt planning on discharging after taking a shower but wanted to wait until later this morning to take shower. Pt decliner further ADLs and UE exercises. Pt reports she has no concerns with her ability to perform ADLs upon discharging, her is taking off work for a while and can assist wtih LBD and footwear as needed. Pt has not had any difficulty with completing toileting, oral care, eating and UBD. Pt educated on energy conservation and ADL modifications for home, she verbalized understanding. OT will attempt tx again at next available time if pt is still admitted. 1, visit PURVI BASHIR OT Apr 08, 2022 08:43
--- NOTE | 2022-04-08 09:36 | Physical Therapy Daily Note ---
PT Daily Note-Current Subjective Patient agrees to PT. Spouse present. Pain Numeric Pain Scale: 8 Location: Right Location Body Site: Knee Pain Description: Acute Mental Status Patient Orientation: Normal For Age Transfers SCALE: Activities may be completed with or without assistive devices. 1-Tfaptconlc-xdbwnhn completes the activity by him/herself with no assistance from a helper. 5-Set-up or Clean-up Assistance-helper sets up or cleans up; patient completes activity. Raymond assists only prior to or following the activity. 4-Supervision or Touching Assistance-helper provides verbal cues and/or touching/steadying and/or contact guard assistance as patient completes activity. Assistance may be provided throughout the activity or intermittently. 3-Partial/Moderate Assistance-helper does LESS THAN HALF the effort. Raymond lifts, holds or supports trunk or limbs, but provides less than half the effort. 2-Substantial/Maximal Assistance-helper does MORE THAN HALF the effort. Raymond lifts or holds trunk or limbs and provides more than half the effort. 9-Pfoxehrzf-qxpjsg does ALL the effort. Patient does none of the effort to complete the activity. Or, the assistance of 2 or more helpers is required for the patient to complete the activity. If activity was not attempted, code reason: 7-Patient Refused. 9-Not Applicable-not attempted and the patient did not perform the activity before the current illness, exacerbation or injury. 10-Not Attempted due to Environmental Limitations-(lack of equipment, weather restraints, etc.). 88-Not Attempted due to Medical Conditions or Safety Concerns. Lying to Sitting/Side of Bed(Q: 4 Sit to Stand (QC): 3 Chair/Tqc-ib-Enege Xfer(QC): 3 Weight Bearing Right Lower Extremity: Right Weight Bearing/Tolerated Left Lower Extremity: Left Full Weight Bearing Gait Training Distance: 30' x 2 Walk 10 feet (QC): 3 Walk 50 ft with 2 Turns(QC): 7 Walk 150 ft (QC): 7 Gait Assistive Device: FWW patient performs gait training with minimal weight bearing right LE with episodes of NWB. Stair Training Stair Training: Handrails/: 1 handrail, uses walker #of Steps: 1 1 Step (curb) (QC): 3 (mod assist) Stairs: Pattern: Step to Exercises Supine Ex: Ankle pumps, Quad Set, Heel Slides, Straight leg raise Supine Reps: 10 Seated Therapy Exercises: Long arc quads Seated Reps: 15 Assessment Patient requires time to complete all functional tasks. Patient continues to perform TTWB to NWB right LE with PT giving verbal cues to weight bear right LE. Patient is also impulsive to sit in recliner too far from chair and twisting. VC's to completely turn for safety. Patient did perform correctly. Patient voiced concern with right foot "not working". PT instructed patient to ask physician about this situation. Education with spouse on assisting patient with steps with use of gait belt, walker and hand rail. Patient performed this task with spouse observing PT. Both voice understanding. Patient to dismiss to home on this date with home health intervention. PT Penitentiary Goals Penitentiary Goals PT Optometry Doctor Goals Time Frame: Apr 14, 2022 Roll Left & Right (QC): 6 Sit to Lying (QC): 6 Lying-Sitting on Side/Bed(QC): 6 Sit to Stand (QC): 5 Chair/Gyp-df-Qmziq Xfer(QC): 5 Toilet Transfer (QC): 5 Does the Patient Walk: Yes Walk 10 feet (QC): 4 Walk 50ft with 2 Turns (QC): 4 Walk 150 ft (QC): 4 1 Step (curb) (QC): 4 4 Steps (QC): 4 12 Steps (QC): 4 PT Plan Treatment/Plan Treatment Plan: Discontinue PT Treatment Plan: Bed Mobility, Education, Functional Activity Tyree, Functional Strength, Group Therapy, Gait, Safety, Therapeutic Exercise, Transfers Treatment Duration: May 13, 2022 Frequency: 11 times per week Estimated Hrs Per Day: .25 hour per day Patient and/or Family Agrees t: Yes Time/GCodes Time In: 750 Time Out: 814 Total Billed Treatment Time: 24 Total Billed Treatment 1 visit EX 15 GT 9 min JULIUS BE PT Apr 08, 2022 09:36
== END 2022-04-08 10:23 | disposition home health service (06) | DRG 470 ==
LOC: 4TH 05:56 → SURG 05:57 → 4TH 10:04
PROVIDERS: ADMIT Orthopaedic Surgery; ATTEND Orthopaedic Surgery
PROC: 0SRC0J9 Replacement of Right Knee Joint with Synthetic Substitute, Cemented, Open Approach (ICD-10-PCS; principal; 2022-04-06 07:33)
DX: M17.11 Unilateral primary osteoarthritis, right knee (principal); F32.A Depression, unspecified; K21.9 Gastro-esophageal reflux disease without esophagitis; I10 Essential (primary) hypertension; E03.9 Hypothyroidism, unspecified; Z96.652 Presence of left artificial knee joint; G89.29 Other chronic pain; M54.9 Dorsalgia, unspecified; F41.9 Anxiety disorder, unspecified; E66.9 Obesity, unspecified; Z68.31 Body mass index [BMI] 31.0-31.9, adult
CPT/HCPCS: 36415; 73560; 85014; 85018; 86850; 86900; 86901; 94664

== ENCOUNTER 2022-05-10 09:21 | Outpatient (RCR) | payer MEDICARE, BC | END 2022-05-15 | disposition home or self-care (01) | PROVIDERS: ATTEND Orthopaedic Surgery | DX: Z47.1 Aftercare following joint replacement surgery (principal); I10 Essential (primary) hypertension; Z96.651 Presence of right artificial knee joint ==

== ENCOUNTER 2022-05-17 11:31 | Outpatient (RCR) | payer MEDICARE, BC | END 2022-05-31 14:09 | disposition home or self-care (01) | PROVIDERS: ATTEND Orthopaedic Surgery | DX: Z47.1 Aftercare following joint replacement surgery (principal); I10 Essential (primary) hypertension; Z96.651 Presence of right artificial knee joint ==

== ENCOUNTER 2023-09-23 09:17 | Emergency (ER) | payer MEDICARE, BC ==
[~2023-09-23] VITALS: Ht 162 cm; Wt 77.6 kg
[2023-09-23] MEDS ORDERED: ONDANSETRON INJECTION 4 MG/2 ML (SDV) IVP ONE (09:45)
[2023-09-23] MEDS ORDERED: LACTATED RINGERS 1,000 ML 1,000 ML IV ONE (10:00)
--- NOTE | 2023-09-23 10:00 | ED General ---
General Chief Complaint: COVID19 Suspect/Confirmed Stated Complaint: COVID POSITIVE - NAUSEA Source of Information: Patient Exam Limitations: No Limitations History of Present Illness Date Seen by Provider: Sep 23, 2023 Time Seen by Provider: 09:36 Initial Comments Ms. Hamlin is a 58-year-old woman who presents to the emergency room via private vehicle with complaints of unrelenting nausea. She was diagnosed with COVID-19 on September 18. Zofran prescribed by Dr. Ribera was not very effective in improving nausea. She has not been actively vomiting. She additionally complains of weakness and dyspnea on exertion. She is afebrile. She has been forcing herself to drink water. Appetite has been poor. Vital signs are unremarkable. Oxygen saturation is 100% on room air. Heart rate is normal. Allergies and Home Medications Allergies Coded Allergies: celecoxib (Verified Allergy, Mild, THROAT SWELLS UP, 03/29/22) meloxicam (Verified Allergy, Mild, SWELLS UP THROAT, 03/29/22) naproxen (Verified Allergy, Mild, CHEST PAIN (2 WKS AFTER TX), 03/29/22) CHEST TIGHTNESS tramadol (Verified Allergy, Unknown, 04/06/22) Patient Home Medication List Home Medication List Reviewed: Yes Levothyroxine Sodium (Synthroid) 75 Mcg Tablet, 75 MCG PO DAILY, (Reported) Entered as Reported by: DEBBIE WALLER on 03/29/22 1129 Lorazepam (Ativan) 1 Mg Tablet, 1 MG SL Q8H PRN for ANXIETY, (Reported) Entered as Reported by: DEBBIE WALLER on 03/29/22 1129 Losartan/Hydrochlorothiazide (Losartan-Hctz 50-12.5 mg Tab) 50 Mg-12.5 Mg Tablet, 2 EACH PO DAILY, (Reported) Entered as Reported by: DEBBIE WALLER on 03/29/22 1129 Pantoprazole Sodium (Protonix) 40 Mg Tablet.dr, 40 MG PO DAILY, (Reported) Entered as Reported by: DEBBIE WALLER on 03/29/22 1129 Potassium Chloride (Potassium Chloride) 10 Meq Capsule.er, 10 MEQ PO DAILY Prescribed by: JOYCELYN ARANDA on 09/23/23 1050 Promethazine HCl (Promethazine HCl) 12.5 Mg Tablet, 12.5 MG PO Q8H PRN for NAUSEA/VOMITING-2ND LINE Prescribed by: JOYCELYN ARANDA on 09/23/23 1050 Sertraline HCl (Sertraline HCl) 100 Mg Tablet, 100 MG PO HS, (Reported) Entered as Reported by: DEBBIE WALLER on 03/29/22 1129 Review of Systems Review of Systems Constitutional: see HPI EENTM: no symptoms reported Respiratory: see HPI Cardiovascular: no symptoms reported Gastrointestinal: see HPI Genitourinary: no symptoms reported : No Musculoskeletal: no symptoms reported Skin: no symptoms reported Psychiatric/Neurological: No Symptoms Reported Hematologic/Lymphatic: No Symptoms Reported Immunological/Allergic: no symptoms reported Past Oggdmdj-Myyrhr-Wyjzwr Hx Patient Social History Tobacco Use?: No Use of E-Cig and/or Vaping dev: No Substance use?: No Alcohol Use?: No Pt feels they are or have been: No Immunizations Up To Date Tetanus Booster (TDap): Unknown PED Vaccines UTD: No First/Initial COVID19 Vaccinat: 05/20/2021 Second COVID19 Vaccination [place]: 06/17/2021 Third COVID19 Vaccination Date: 05/20/2021 Seasonal Allergies Seasonal Allergies: Yes Past Medical History Surgery/Hospitalization HX: HTN, ANXIETY, ARTHRITIS, SPINAL CORD SPLIT BILAT TKR, APPY Surgeries: Yes (LEFT PARTIAL KNEE REPLACEMENT, BREAST BX, TUBES TIED) Appendectomy, Orthopedic Respiratory: Yes (SOA WITH EXERTION) Currently Using CPAP: No Currently Using BIPAP: No Cardiac: Yes Hypertension Neurological: Yes ("teathered spinal cord") Reproductive Disorders: Yes Female Reproductive Disorders: Denies MEDICAL RECORDS RECEPTIONIST History: Tubal Ligation Genitourinary: No Gastrointestinal: Yes Gastroesophageal Reflux Musculoskeletal: Yes (DJD BILAT KNEES, SPINAL SPLIT (BOTTOM) - GENETIC, WEAK LEGS) Arthritis, Chronic Back Pain Endocrine: Yes Hypothyroidsim Loss of Vision: Denies Hearing Impairment: Denies Cancer: No Psychosocial: Yes Anxiety, Depression Integumentary: No Blood Disorders: Yes (ANEMIC HX) Family Medical History No Pertinent Family Hx Physical Exam Vital Signs Vital Signs - First Documented 09/23/23 09:23 Temp 37.5 Pulse 83 Resp 16 B/P (MAP) 143/72 (95) Pulse Ox 100 O2 Delivery Room Air Capillary Refill : Height, Weight, BMI Height: 5'2" Weight: 154lbs. oz. [id number]; 31.08 BMI Method:Stated General Appearance: No Apparent Distress, WD/WN HEENT: PERRL/EOMI, Normal ENT Inspection, Other (oropharynx somewhat dry) Neck: Normal Inspection Respiratory: Lungs Clear, Normal Breath Sounds, No Accessory Muscle Use, No Respiratory Distress Cardiovascular: Regular Rate, Rhythm, No Edema, No Murmur Gastrointestinal: Non Tender, Soft; No Distended Extremity: Normal Inspection, Non Tender, No Pedal Edema Neurologic/Psychiatric: Alert, Oriented x3, No Motor/Sensory Deficits, Normal Mood/Affect, Other (cognition dulled) Skin: Normal Color, Warm/Dry Progress/Results/Core Measures Suspected Sepsis SIRS Temperature: Pulse: Respiratory Rate: Laboratory Tests 09/23/23 09:32: White Blood Count 7.0 Blood Pressure / Mean: Laboratory Tests 09/23/23 09:32: Creatinine 1.04, Platelet Count 318 Results/Orders Lab Results Laboratory Tests Test 09/23/23 09:32 Range/Units White Blood Count 7.0 4.3-11.0 10^3/uL Red Blood Count 4.75 3.80-5.11 10^6/uL Hemoglobin 14.7 11.5-16.0 g/dL Hematocrit 40 35-52 % Mean Corpuscular Volume 84 80-99 fL Mean Corpuscular Hemoglobin 31 25-34 pg Mean Corpuscular Hemoglobin Concent 37 H 32-36 g/dL Red Cell Distribution Width 12.4 10.0-14.5 % Platelet Count 318 130-400 10^3/uL Mean Platelet Volume 11.1 9.0-12.2 fL Immature Granulocyte % (Auto) 1 % Neutrophils (%) (Auto) 67 42-75 % Lymphocytes (%) (Auto) 26 12-44 % Monocytes (%) (Auto) 5 0-12 % Eosinophils (%) (Auto) 1 0-10 % Basophils (%) (Auto) 0 0-10 % Neutrophils # (Auto) 4.7 1.8-7.8 10^3/uL Lymphocytes # (Auto) 1.8 1.0-4.0 10^3/uL Monocytes # (Auto) 0.4 0.0-1.0 10^3/uL Eosinophils # (Auto) 0.1 0.0-0.3 10^3/uL Basophils # (Auto) 0.0 0.0-0.1 10^3/uL Immature Granulocyte # (Auto) 0.0 0.0-0.1 10^3/uL Sodium Level 136 135-145 MMOL/L Potassium Level 2.8 L 3.6-5.0 MMOL/L Chloride Level 98 98-107 MMOL/L Carbon Dioxide Level 23 21-32 MMOL/L Anion Gap 15 H 5-14 MMOL/L Blood Urea Nitrogen 14 7-18 MG/DL Creatinine 1.04 0.60-1.30 MG/DL Estimat Glomerular Filtration Rate 62 BUN/Creatinine Ratio 13 Glucose Level 108 H 70-105 MG/DL Calcium Level 9.7 8.5-10.1 MG/DL Magnesium Level 2.5 H 1.6-2.4 MG/DL My Orders Orders - JOYCELYN PETERSEN MD Ondansetron Injection (Ondansetron Inj (09/23/23 09:45) Basic Metabolic Panel (09/23/23 09:54) Cbc And Automated Diff (09/23/23 09:54) Magnesium (09/23/23 09:54) Ed Iv/Invasive Line Start (09/23/23 09:54) Lactated Ringers 1,000 Ml (Lactated Ring (09/23/23 10:00) Ns Iv 1000 Ml (Ns Iv 1000 Ml) (09/23/23 10:25) Potassium Cl 10meq/50ml Ivpb (Kcl 10 Meq (09/23/23 10:30) Potassium Cl 10meq/50ml Ivpb (Kcl 10 Meq (09/23/23 10:30) Potassium Chloride (Tablet) (Potassium C (09/23/23 10:30) Promethazine Injection (Promethazine I (09/23/23 11:00) Promethazine Tablet (Promethazine Tabl (09/23/23 11:15) Potassium Chloride (Tablet) (Potassium C (09/23/23 12:43) Medications Given in ED Vital Signs/I&O 09/23/23 09/23/23 09:23 13:33 Temp 37.5 37.5 Pulse 83 87 Resp 16 16 B/P (MAP) 143/72 (95) 113/58 Pulse Ox 100 100 O2 Delivery Room Air Room Air Capillary Refill : Progress Note : Progress Note Dana was interviewed and examined. Daughter was also interviewed. Labs were obtained and interpreted by me. CBC was normal. CMP was remarkable for hypokalemia with potassium of 2.8. She was initially hydrated with a liter of LR. Nausea was treated with Zofran. This did not give satisfactory relief. Residual nausea was treated with oral Phenergan (IV Phenergan is not available at this time). Potassium was replaced initially with 20 mEq by IV route. Additional normal saline was infused with the potassium. Hypokalemia was further treated with oral potassium. Patient believes her appetite is so poor and nausea is such a problem that she will likely need potassium supplementation at home. A prescription was provided along with antiemetics. Patient was feeling improved at the time of discharge. Vital signs remained stable. See discharge instructions for further discussion. Departure Impression Primary Impression: COVID-19 Additional Impressions: Nausea Hypokalemia Disposition: HOME, SELF-CARE Condition: Improved Departure-Patient Inst. Decision time for Depature: 10:47 Referrals: DARINEL RIBERA MD (PCP/Family) Primary Care Physician Patient Instructions: COVID-19 ED, Hypokalemia Add. Discharge Instructions: Continue to drink plenty of clear liquids to stay well-hydrated. If possible, drink liquids that contain electrolytes such as sports drinks, Pedialyte, etc. Use Zofran (ondansetron) dissolved under the tongue every 4 hours as needed for primary treatment of nausea and vomiting. Use Phenergan (promethazine) as a backup medication to treat nausea. Please be aware Phenergan may cause drowsiness, so use with caution. Take the potassium supplement daily until your appetite and food consumption returns to normal. Return to the ER if you have worsening symptoms despite following these instructions. All discharge instructions reviewed with patient and/or family. Voiced understanding. Scripts Potassium Chloride (Potassium Chloride) 10 Meq Capsule.er 10 MEQ PO DAILY, #10 CAP Prov: JOYCELYN PETERSEN MD 09/23/23 Promethazine HCl (Promethazine HCl) 12.5 Mg Tablet 12.5 MG PO Q8H PRN for NAUSEA/VOMITING-2ND LINE, #10 TAB Prov: JOYCELYN PETERSEN MD 09/23/23 Copy Copies To 1: DARINEL RIBERA MD, JOSHUA T MD Sep 23, 2023 10:00
[2023-09-23 10:03] LABS: BASOPHILS % (AUTO) 0 % (0-10); EOSINOPHILS # (AUTO) 0.1 10^3/uL (0.0-0.3); EOSINOPHILS % (AUTO) 1 % (0-10); HEMATOCRIT 40 % (35-52); HEMOGLOBIN 14.7 g/dL (11.5-16.0); LYMPHOCYTES # (AUTO) 1.8 10^3/uL (1.0-4.0); LYMPHOCYTES % (AUTO) 26 % (12-44); MEAN CORPUSCULAR HEMOGLOBIN 31 pg (25-34); MEAN CORPUSCULAR HGB CONC 37 g/dL (32-36); MEAN CORPUSCULAR VOLUME 84 fL (80-99); MEAN PLATELET VOLUME 11.1 fL (9.0-12.2); MONOCYTES # (AUTO) 0.4 10^3/uL (0.0-1.0); MONOCYTES % (AUTO) 5 % (0-12); NEUTROPHILS # (AUTO) 4.7 10^3/uL (1.8-7.8); NEUTROPHILS % (AUTO) 67 % (42-75); PLATELET COUNT 318 10^3/uL (130-400)
[2023-09-23 10:10] LABS: POTASSIUM 2.8 MMOL/L (3.6-5.0)
[2023-09-23 10:12] LABS: CALCIUM 9.7 MG/DL (8.5-10.1)
[2023-09-23 10:16] LABS: CREATININE SERUM 1.04 MG/DL (0.60-1.30)
[2023-09-23 10:18] LABS: MAGNESIUM 2.5 MG/DL (1.6-2.4)
[2023-09-23] MEDS ORDERED: NS IV 1000 ML 1,000 ML IV STA (10:25)
[2023-09-23] MEDS ORDERED: POTASSIUM CHLORIDE 10 MEQ TABLET PO ONE ×2 (10:30→12:43)
[2023-09-23] MEDS ORDERED: POTASSIUM CL 10MEQ/50ML IVPB 50 ML IV ONE ×2 (10:30)
[2023-09-23] MEDS ORDERED: POTA10CA84 PO (10:50)
[2023-09-23] MEDS ORDERED: PROM12.511 PO (10:50)
[2023-09-23] MEDS ORDERED: PROMETHAZINE INJ 25 MG/ML VIAL IVP ONE (11:00)
[2023-09-23] MEDS ORDERED: PROMETHAZINE 25 MG TABLET PO ONE (11:15)
[2023-09-23 13:33] VITALS: BP 113/58
== END 2023-09-23 13:33 | disposition home or self-care (01) ==
LOC: EDUNIT# 09:17 → ER 09:18
DX: U07.1 COVID-19 (principal); E87.6 Hypokalemia; R11.0 Nausea; R53.1 Weakness; R06.09 Other forms of dyspnea; R63.0 Anorexia
CPT/HCPCS: 36415; 80048; 83735; 85025